=== PATIENT | female | born 1995 | race Caucasian/White ===

== ENCOUNTER → 2016-11-09 | Outpatient (CLI) | payer OTHER ==
[2016-11-09 15:41] LABS: HEMATOCRIT 40.5 % (37-47); MEAN CELL VOLUME 77.4 fL (80-100); MEAN CORPUSCULAR HEMOGLOBIN 25.6 pg (25-34); MEAN CORPUSCULAR HGB CONC 33.1 g/dl (32-36); MEAN PLATELET VOLUME 9.4 fL (7.4-10.4); PLATELET COUNT 311 K/uL (130-400); RED BLOOD COUNT 5.23 M/uL (4.2-5.4); WHITE BLOOD COUNT 9.92 K/uL (4.8-10.8)
== END | disposition home or self-care (01) ==
LOC: C.LAB1850 14:22
PROVIDERS: ATTEND Physician Assistant
DX: N92.0 Excessive and frequent menstruation with regular cycle (principal)

== ENCOUNTER 2021-03-22 17:08 | Inpatient (IN) ==
[2021-03-22] MEDS ORDERED: OXYTOCIN 30 UNITS/500 ML BAG IV PRN (20:26)
[2021-03-22 20:43] LABS: Hematocrit (blood only) 32.9 % (37-47); Hemoglobin 10.4 g/dL (12.0-16.0); Mean Corpuscular Hemoglobin 22.7 pg (25-34); Mean Corpuscular Hgb Conc 31.6 g/dL (32-36); Mean Corpuscular Volume 71.7 fL (80-100); Mean Platelet Volume 9.2 fL (7.4-10.4); Platelet Count 326 K/uL (130-400); RDW Coefficient of Variation 16.6 % (11.5-14.5); RDW Standard Deviation 43.5 fL (36.4-46.3); Red Blood Count 4.59 M/uL (4.2-5.4); White Blood Count 13.88 K/uL (4.8-10.8)
--- NOTE | 2021-03-22 20:49 | History & Physical Report ---
Date of Service March 22, 2021 Assessment & Plan (1) Gestational proteinuria: Plan: 25 yo at 39w2d GA. Early labor. 1. Fetus: Cat 1 2. Labor: Progressing. Discuss Pitocin/AROM prn 3. GBS Negative 4. Vitals normal 5. A1gDM: BG q2hr, AC 58% (2) Gestational diabetes: (3) Hypothyroid in , antepartum: History of Present Illness Primary Care Provider: NO PCP 25yo at 39w2d. Presents with ctx q3-5min. Denies LOF/VB. Good FM. complicated by: Hypothyroid *Check TFTs Q4wks(recurring order) PCOS insulin resistance-conceived on Metformin *stop metformin @ 12wks gestation *offer 1hr gtt test @ 16wks. Rh Negative - Rhogam at 28 weeks- Given 01/06/21 KA GDM w/16wk glucola *Begin monthly AC Us's @24wks Gestational Proteinuria 384 mg on 24 hour urine of 02/22/21 Labs: OB Labs: Blood Type O Negative 08/18/20 Antibody Screen NEGATIVE 01/06/21 Hemoglobin 10.0 g/dL (12.0-16.0) L 02/18/21 Hematocrit 32.3 % (37-47) L 02/18/21 Mean Corpuscular Volume 73.6 fL (80-100) L 02/18/21 Platelet Count 347 K/uL (130-400) 02/18/21 Rubella IgG Antibody Immune (Immune) 08/18/20 Rapid Plasma Reagin Nonreactive (Nonreactive) 08/18/20 Hepatitis B Surface Antigen Neg (Neg) 08/18/20 HIV (1&2) Ab and P24 Ag, 4th Gener Neg (Neg) 08/18/20 Glucose 1 Hour 50 gm Load 146 mg/dl (70-130) H 10/13/20 OB Optional Labs: Chlamydia trachomatis RNA NOT DETECTED (NOT DETECTED) 08/18/20 Neisseria gonorrhoeae RNA NOT DETECTED (NOT DETECTED) 08/18/20 Thyroid Stimulating Hormone (TSH) 3.350 uIu/ml (0.300-4.500) 12/21/17 Labs Reviewed: low risk panorama declines df/sma declined afp Allergies Allergy/AdvReac Type Severity Reaction Status Date / Time sulfamethoxazole AdvReac Rash Verified 03/22/21 17:28 [From Bactrim] trimethoprim [From Bactrim] AdvReac Rash Verified 03/22/21 17:28 Home Medications Medication Instructions Recorded Confirmed Type levothyroxine 25 mcg tablet 25 mcg PO DAILY 01/10/18 03/22/21 History prenat.vits,bill,[id number] 1 tab PO DAILY 09/15/20 03/22/21 History acetone (urine) test (Ketone Urine #50 ea 10/28/20 03/18/21 Rx Test) blood sugar diagnostic (OneTouch #150 ea 10/28/20 03/18/21 Rx Verio test strips) blood-glucose meter (OneTouch #1 ea 10/28/20 03/18/21 Rx Verio Flex meter) lancets 33 gauge (OneTouch Delica #150 ea 10/28/20 03/18/21 Rx Plus Lancet) Patient History Medical History Functional murmur History of chicken pox Hypothyroidism Surgical History [place] teeth extracted Family History Father Diabetes Hypertension Denies family history of Ovarian cancer Breast cancer Colorectal cancer Social History Smoking Status: Never smoker Hx Alcohol Use: No Hx Substance Use: No Preferred Language: Ukrainian Communication Ability: Effective Cotton Dispatcher Required: No Beliefs That Will Affect Care: None marital status: marital status details: Rick Godoy (30) [phone] Current Living Situation: Spouse Current Living Situation Comment: lives with spouse, dogs current occupational status: employed 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 Other Information That Helps Us Care for You: No Feels Safe at Home: Yes Safety Concerns: Feels Safe At This Time Seatbelt Use: always Assistive Devices: None Physical Exam Genitourinary: OB Exam Abdomen: + vertex Manual OB Exam: + cervical dilation (2-2.5), + cervical effacement 80% and + station -2 OB Exam Monitor Tracing: + external FHT monitor used, + external uterine monitor used and + category I Cervix 1/80/-2 at first check Results & Data ([facility]) Vital Signs (Past 12 Hours) Vital Signs Temp Pulse Resp BP 03/22/21 18:46 36.6 C 93 H 20 136/70 03/22/21 17:30 107 H 145/79 H 03/22/21 17:15 36.6 C 108 H 20 145/85 H Coding Level of Care Code None Diagnoses Gestational proteinuria O12.10 Gestational diabetes O24.419 Hypothyroid in , antepartum O99.280; E03.9
[2021-03-22] MEDS: LACTATED RINGER'S 1,000 ML IV PRN (21:38)
--- NOTE | 2021-03-23 00:58 | Labor Progress Brief Note ---
Date of Service March 23, 2021 Subjective Reason For Note: Routine Evaluation Assessment & Plan (1) Gestational proteinuria: Plan: 25 yo at 39w2d GA. Early labor. 1. Fetus: Cat 1 2. Labor: Progressing. s/pAROM 3. GBS Negative 4. Vitals normal 5. A1gDM: BG q2hr, AC 58% (2) Gestational diabetes: (3) Hypothyroid in , antepartum: Admission and Anticipated Discharge Date Admission Date: March 22, 2021 Physical Exam Genitourinary: OB Exam Abdomen: + vertex Manual OB Exam: + cervical dilation 3 cm, + cervical effacement, + station -1 and + amniotic fluid bloody OB Exam Monitor Tracing: + external FHT monitor used, + external uterine monitor used and + category I Results & Data ([facility]) Vital Signs (Past 12 Hours) Vital Signs Temp Pulse Resp BP 03/22/21 23:06 36.6 C 90 18 128/78 03/22/21 21:38 36.6 C 93 H 20 132/60 03/22/21 18:46 36.6 C 93 H 20 136/70 03/22/21 17:30 107 H 145/79 H 03/22/21 17:15 36.6 C 108 H 20 145/85 H Coding Level of Care Code None Diagnoses Gestational proteinuria O12.10 Gestational diabetes O24.419 Hypothyroid in , antepartum O99.280; E03.9
[2021-03-23] MEDS ORDERED: ePHEDrine sulfate 50 MG/ML AMP ONE (02:34)
[2021-03-23] MEDS ORDERED: SODIUM CHLORIDE 0.9% INJ 10 ML VIAL ONE (02:34)
[2021-03-23] MEDS ORDERED: BUPIVACAINE 0.25% 30 ML VIAL ONE (02:34)
[2021-03-23] MEDS ORDERED: fentaNYL 2MCG/ML ROPIVACAINE 1.25MG/ML 100 ML BAG EPI ONE (02:35)
[2021-03-23] MEDS ORDERED: fentaNYL citrate 100 MCG/2 ML VIAL ONE (02:35)
[2021-03-23] MEDS ORDERED: NALBUPHINE HCL INJ 10 MG/ML AMP IV PRN (03:10)
[2021-03-23] MEDS ORDERED: diphenhydrAMINE 50 MG/ML VIAL IV PRN (03:10)
[2021-03-23] MEDS ORDERED: NALOXONE HCL 0.4 MG/1 ML VIAL/CARP IV PRN (03:10)
[2021-03-23] MEDS ORDERED: NALOXONE HCL 1 MG in SODIUM CHLORIDE 0.9% 1000ML 1,000 ML IV PRN (03:10)
[2021-03-23] MEDS ORDERED: fentaNYL 2MCG/ML ROPIVACAINE 1.25MG/ML 100 ML BAG EPI PRN (03:10)
[2021-03-23] MEDS ORDERED: ONDANSETRON INJ 2 MG/ML 2 ML VIAL IV PRN (03:10)
[2021-03-23] MEDS ORDERED: ePHEDrine sulfate 50 MG/ML AMP IV PRN (03:10)
[2021-03-23] MEDS: LACTATED RINGER'S 1,000 ML IV PRN ×2 (03:12→09:33)
--- NOTE | 2021-03-23 03:16 | Anesthesiology Consultation ---
Date of Service March 23, 2021 Assessment & Plan Chart Review Chart Review: Patient NOT seen in Pre Admission Testing and Acceptable Risk for Labor Epidural Consults Requested none ASA ASA2 Proposed Anesthesia Anesthesia Type: Labor Epidural and CSE Risk / Benefits Reviewed With: PT / POA / Parent / Guardian, Accepts Plan and Informed Consent Obtained History Height/Weight Height: 5 ft 7 in Weight: 102.965 kg Allergies Allergy/AdvReac Type Severity Reaction Status Date / Time sulfamethoxazole AdvReac Rash Verified 03/22/21 17:28 [From Bactrim] trimethoprim [From Bactrim] AdvReac Rash Verified 03/22/21 17:28 Medications Home Medications Medication Instructions Recorded Confirmed Last Taken levothyroxine 25 mcg tablet 25 mcg PO DAILY 01/10/18 03/22/21 03/22/21 07:00 prenat.vits,bill,[id number]-[id number] 1 tab PO DAILY 09/15/20 03/22/21 03/22/21 08:00 acetone (urine) test (Ketone Urine #50 ea 10/28/20 03/18/21 Unknown Test) blood sugar diagnostic (OneTouch #150 ea 10/28/20 03/18/21 Unknown Verio test strips) blood-glucose meter (OneTouch #1 ea 10/28/20 03/18/21 Unknown Verio Flex meter) lancets 33 gauge (OneTouch Delica #150 ea 10/28/20 03/18/21 Unknown Plus Lancet) Active Medications Generic Name Dose Route Start Last Admin Trade Name Freq PRN Reason Stop Dose Admin Lactated Ringer's 1,000 mls @ 125 mls/hr 03/22/21 20:26 03/23/21 03:12 Lr IV 03/24/21 20:25 999 mls/hr .Q8H PRN Administration L&D Protocol Protocol NPO Date Last Intake of Fluids: 03/23/21 Time Last Intake of Fluids: 01:00 Date Last Intake of Solids: 03/22/21 Time Last Intake of Solids: 21:00 Past Medical History Medical History Functional murmur History of chicken pox Hypothyroidism Exercise / Class Metabolic Activity II 4-5 Yardwork/Stairs/Walk up hill Past Family History Family History Father Diabetes Hypertension Denies family history of Ovarian cancer Breast cancer Colorectal cancer Past Surgical History Surgical History [place] teeth extracted Past Anesthesia History No Hx of Anesthesia Complications and No Family Hx of Anesthesia Complications History of PONV No Hx of PONV and No Hx of Motion Sickness Social History Smoking Status: Never smoker Hx Alcohol Use: No Hx Substance Use: No Review of Systems no chest pain or sob Physical Exam Vital Signs Last Vital Signs Temp 36.8 C 03/23/21 02:50 Pulse 100 H 03/23/21 03:12 Resp 20 03/23/21 02:50 BP 128/78 03/22/21 23:06 Pulse Ox 99 03/23/21 03:12 ENMT Mouth: no TMJ abnormality Thyromental Distance: > or= 3.5 Finger Breadths Mallampati Class: II Neck normal visual inspection Respiratory normal respiratory effort Auscultation: lungs clear to auscultation bilaterally Cardiovascular Rate/Rhythm: regular rate and regular rhythm Musculoskeletal Spine: normal cervical ROM Neurologic moves all extremities Psychiatric Orientation: alert and oriented x 3 Testing Laboratory Results 03/22/21 20:34 Blood Type O Negative 03/22/21 20:34 Antibody Screen NEGATIVE 03/22/21 20:34 03/22/21 21:04 POC Glucose 91
--- NOTE | 2021-03-23 11:01 | Delivery Summary ---
Vaginal Delivery Summary Date of Service March 23, 2021 Vaginal Delivery Summary Patient was admitted by Dr. Zheng the evening before and progressed to fully dilated in the morning. The patient pushed over a little over an hour there was some meconium noticed and there was a late elevation of the heart rate however there were excellent accelerations and minimal decelerations she delivered in occiput anterior position mouth and then nares suctioned with bulb there was thick meconium loose nuchal cord passed over the head and then gentle traction on the baby with no excessive force this was an easy delivery live female the baby required some stimulation at the start cord was clipped quickly clamped and cut cord gases obtained baby was attended to by the nursery staff placenta was removed with gentle traction IV Pitocin was started there was a second-degree tear repaired with 3-0 Vicryl in the usual fashion at the end of the procedure sponge and instrument counts were correct estimated blood loss 300 mL
[2021-03-23] MEDS ORDERED: bisacodyL 10 MG SUPP PR PRN (11:19)
[2021-03-23] MEDS ORDERED: BENZOCAINE 20% AER SPR 82.5 GM CAN EXT PRN (11:19)
[2021-03-23] MEDS ORDERED: oxyCODONE/ACETAMINOPHEN 5mg/325mg TAB PO PRN (11:19)
[2021-03-23] MEDS ORDERED: HYDROCORTISONE ACETATE 25 MG SUPP PR PRN (11:19)
[2021-03-23] MEDS ORDERED: DIPHTHERIA/TETANUS/PERTUSSIS 0.5 ML SYR/VIAL IM ONE (11:19)
[2021-03-23] MEDS ORDERED: ACETAMINOPHEN 325 MG TAB PO PRN (11:19)
[2021-03-23] MEDS ORDERED: OXYTOCIN 30 UNITS/500 ML BAG IV PRN (11:19)
[2021-03-23 11:22] LABS: Base Excess Cord Venous Blood -5.4 mEq/L (-7.7-1.9); Cord Venous Blood HCO3 18 mmol/L (18.4-26.8); Cord Venous Blood PCO2 29 mmHg (30.4-57.2); Cord Venous Blood PO2 39 mmHg (14.1-43.3); O2 Saturation Cord Venous Bld 79.8 % (<68)
[2021-03-23 11:29] LABS: Base Excess Cord Arterial Bld -6.8 mEq/L (-9-1.8); CO2 Cord Arterial Blood 52 mmHg (39.1-73.5); HCO3 Cord Arterial Blood 21 mmol/L (19.7-28.5); PO2 Cord Arterial Blood 17 mmHg (4.1-31.7); pH Cord Arterial Blood 7.23 (7.1-7.38)
[2021-03-23 11:38] LABS: Oxygen Sat Cord Arterial Blood < 60.0 % (<60)
--- NOTE | 2021-03-23 13:11 | Anesthesiology Progress Note ---
Date of Service March 23, 2021 Anesthesia Post Procedure Vital Signs Vital Signs: Temp Pulse Resp BP Pulse Ox 03/23/21 13:05 125 H 131/62 03/23/21 12:50 112 H 140/65 03/23/21 12:35 109 H 132/64 03/23/21 12:20 126 H 137/63 03/23/21 12:05 118 H 131/57 L 03/23/21 11:50 115 H 125/55 L 03/23/21 11:35 113 H 127/58 L 03/23/21 11:20 111 H 136/63 03/23/21 11:05 118 H 134/60 03/23/21 10:57 115 H 97 03/23/21 10:52 133 H 100 03/23/21 10:50 137 H 119/60 03/23/21 10:47 147 H 99 03/23/21 10:45 37.2 C 03/23/21 10:42 149 H 98 03/23/21 10:37 144 H 100 03/23/21 10:35 130 H 117/64 03/23/21 10:32 129 H 99 03/23/21 10:27 166 H 99 03/23/21 10:22 119 H 99 03/23/21 10:21 151 H 111/53 L 03/23/21 10:17 116 H 99 03/23/21 10:12 113 H 99 03/23/21 10:07 140 H 99 03/23/21 10:06 123 H 141/61 H 03/23/21 10:02 118 H 98 03/23/21 09:57 156 H 98 03/23/21 09:52 111 H 97 03/23/21 09:50 118 H 144/66 H 03/23/21 09:47 137 H 97 03/23/21 09:42 121 H 97 03/23/21 09:37 119 H 98 03/23/21 09:35 117 H 144/74 H 03/23/21 09:32 134 H 98 03/23/21 09:27 131 H 98 03/23/21 09:22 124 H 97 03/23/21 09:20 121 H 145/74 H 03/23/21 09:17 128 H 97 03/23/21 09:12 110 H 97 03/23/21 09:07 107 H 142/76 H 97 03/23/21 09:02 107 H 98 03/23/21 08:57 110 H 97 03/23/21 08:53 36.8 C 20 03/23/21 08:52 98 H 97 03/23/21 08:51 96 H 136/77 03/23/21 08:47 104 H 98 03/23/21 08:42 112 H 98 03/23/21 08:37 105 H 97 03/23/21 08:35 98 H 117/62 03/23/21 08:32 93 H 99 03/23/21 08:27 98 H 99 03/23/21 08:22 102 H 100 03/23/21 08:20 109 H 119/68 03/23/21 08:17 102 H 100 03/23/21 08:12 102 H 100 03/23/21 08:07 95 H 99 03/23/21 08:05 94 H 116/60 03/23/21 08:02 89 100 03/23/21 07:59 20 03/23/21 07:57 91 H 100 03/23/21 07:52 87 100 03/23/21 07:50 90 134/73 03/23/21 07:47 87 100 03/23/21 07:42 89 100 03/23/21 07:37 95 H 100 03/23/21 07:35 86 131/63 03/23/21 07:32 84 100 03/23/21 07:27 100 H 100 03/23/21 07:22 93 H 100 03/23/21 07:21 86 125/62 03/23/21 07:17 86 100 03/23/21 07:12 92 H 100 03/23/21 07:07 90 139/83 100 03/23/21 07:03 36.8 C 20 03/23/21 07:02 104 H 100 03/23/21 06:57 95 H 100 03/23/21 06:52 95 H 100 03/23/21 06:50 90 118/67 03/23/21 06:47 90 100 03/23/21 06:42 92 H 100 03/23/21 06:40 36.6 C 03/23/21 06:37 95 H 99 03/23/21 06:35 104 H 134/70 03/23/21 06:32 109 H 99 03/23/21 06:27 107 H 100 03/23/21 06:22 100 H 96 03/23/21 06:20 112 H 134/66 03/23/21 06:17 94 H 96 03/23/21 06:12 95 H 96 03/23/21 06:07 100 H 96 03/23/21 06:05 101 H 134/68 03/23/21 06:02 101 H 97 03/23/21 05:57 109 H 97 03/23/21 05:52 102 H 96 03/23/21 05:50 103 H 132/60 03/23/21 05:47 91 H 96 03/23/21 05:42 91 H 96 03/23/21 05:37 94 H 97 03/23/21 05:36 90 131/60 03/23/21 05:32 102 H 98 03/23/21 05:27 90 97 03/23/21 05:22 115 H 98 03/23/21 05:20 87 118/56 L 03/23/21 05:17 94 H 97 03/23/21 05:12 90 97 03/23/21 05:07 95 H 98 03/23/21 05:05 96 H 122/58 L 03/23/21 05:02 104 H 97 03/23/21 05:00 36.9 C 18 03/23/21 04:57 104 H 96 03/23/21 04:52 104 H 97 03/23/21 04:50 110 H 123/61 03/23/21 04:47 100 H 96 03/23/21 04:42 94 H 97 03/23/21 04:37 98 H 96 03/23/21 04:35 93 H 124/67 03/23/21 04:32 100 H 98 03/23/21 04:27 96 H 98 03/23/21 04:22 97 H 98 03/23/21 04:20 99 H 126/67 03/23/21 04:17 95 H 96 03/23/21 04:12 97 H 98 03/23/21 04:07 100 H 98 03/23/21 04:06 93 H 138/75 03/23/21 04:02 98 H 98 03/23/21 03:57 88 98 03/23/21 03:52 92 H 99 03/23/21 03:47 102 H 122/68 98 03/23/21 03:44 90 128/71 03/23/21 03:42 95 H 99 03/23/21 03:41 93 H 129/66 03/23/21 03:38 102 H 125/73 03/23/21 03:37 92 H 99 03/23/21 03:35 98 H 139/71 03/23/21 03:32 102 H 135/75 99 03/23/21 03:29 105 H 138/72 03/23/21 03:27 96 H 99 03/23/21 03:26 96 H 135/77 03/23/21 03:23 100 H 138/96 03/23/21 03:22 108 H 100 03/23/21 03:17 127 H 140/82 100 03/23/21 03:12 100 H 99 03/23/21 02:50 36.8 C 20 03/23/21 01:00 36.6 C 20 03/22/21 23:06 36.6 C 90 18 128/78 03/22/21 21:38 36.6 C 93 H 20 132/60 03/22/21 18:46 36.6 C 93 H 20 136/70 03/22/21 17:30 107 H 145/79 H 03/22/21 17:15 36.6 C 108 H 20 145/85 H Transfer of Care Handoff Completed per policy Notes Mental Status: alert / awake / arousable and participated in evaluation Patient Amnestic to Procedure: Yes Nausea / Vomiting: adequately controlled Pain: adequately controlled Airway Patency, RR, SpO2: stable & adequate BP & HR: stable & adequate Hydration State: stable & adequate Anesthetic Complications: no major complications apparent and Pt Satisfied with anesthetic care
[2021-03-23] MEDS: IBUPROFEN 600 MG TAB PO PRN ×2 (18:24→21:17)
[2021-03-23] MEDS: DOCUSATE SODIUM 100 MG CAP PO SCH (21:17)
[2021-03-24] MEDS: IBUPROFEN 600 MG TAB PO PRN ×2 (04:13→08:26)
--- NOTE | 2021-03-24 06:12 | Obstetrical Progress Note ---
Date of Service <Nemo Ortiz DO - Last Filed: 03/24/21 06:50> March 24, 2021 Assessment & Plan <Nemo Ortiz DO - Last Filed: 03/24/21 06:50> (1) Gestational proteinuria: (2) Gestational diabetes: (3) Hypothyroid in , antepartum: (4) Encounter for care and examination after delivery: 25 yo post op day1 from with GDM, gestational proteinuria, and hypothyroidism affecting , doing well. -Continue routine post care. -vital signs reviewed and WNL (Tmax 37.6) -Blood Type O- recieved rhogam 01/06/21, GBS-, Rubella immune -Encourage ambulation, monitor and control pain with Motrin, tylenol PRN, resume regular diet, monitor lochia -encourage breast/bottle feeding once infant reunited with mother -hemoglobin 10.4 Day #:: 1 <Blas Grimes MD, FACOG - Last Filed: 03/24/21 07:24> (1) Gestational proteinuria: (2) Gestational diabetes: (3) Hypothyroid in , antepartum: (4) Encounter for care and examination after delivery: Subjective <Nemo Ortiz DO - Last Filed: 03/24/21 06:50> Ambulation: ambulating normally Voiding: no voiding problems Passing Gas:: Yes Diet Tolerance:: regular diet Lochia:: Large Feeding Type:: bottle feeding (with pediatricians, mother has not attempted breast feeding yet) Current Pain Level(1-10): 1 Review of Systems Denies fever, chills, sweats Denies shortness of breath, difficulty breathing, chest pain, palpitations, chest pressure. Denies breast pain. Denies dysuria. Denies headache or changes in vision. Physical Exam <Nemo Ortiz DO - Last Filed: 03/24/21 06:50> General: Alert, oriented. No acute distress. Cardiac: Regular rate and rhythm, no murmurs/rubs/gallops. Respiratory: Clear to auscultation bilaterally a/p, no wheezes/rales/rhonchi. No increased work of breathing. Symmetrical chest rise. No respiratory distress. Abdomen: Soft, nontender, nondistended. Bowel sounds present. Uterus: Uterine fundus firm, palpable 2 cm below umbilicus. Lower Extremities: No lower extremity edema or swelling. No deep calf pain. Violeta's negative bilaterally.. Results & Data ([facility]) <Nemo Ortiz DO - Last Filed: 03/24/21 06:50> Vital Signs (Past 12 Hours) Vital Signs Temp Pulse Resp BP Pulse Ox 03/24/21 04:05 36.5 C 87 18 126/77 100 03/23/21 23:30 36.6 C 91 H 18 130/79 99 03/23/21 19:45 37.2 C 97 H 18 136/76 98 <Blas Grimes MD, FACOG - Last Filed: 03/24/21 07:24> Co-Signing Physician Notes Resident Physician Supervision Note: I was present with Dr. Ortiz during the history and exam. I discussed the case with the resident and agree with the findings and plan as documented in the n ote. Any exceptions or clarifications are listed here: [None] Documented By: Blas Grimes MD, FACOG Resident Activity Tracking <Nemo Ortiz DO - Last Filed: 03/24/21 06:50> Resident Involvement: Resident Care Provided Care Provided: Adult [facility]
[2021-03-24] MEDS ORDERED: LEVOTHYROXINE SODIUM 25 MCG TABLET PO SCH (06:30)
[2021-03-24] MEDS ORDERED: PRENATAL VITAMIN 1 TAB PO SCH (08:00)
[2021-03-24] MEDS: DOCUSATE SODIUM 100 MG CAP PO SCH (08:26)
[2021-03-24] MEDS ORDERED: bisacodyL 5 MG TABEC PO SCH (20:00)
== END 2021-03-24 10:50 | disposition home or self-care (01) | DRG 807 ==
LOC: OPB 17:08 → 4S1 17:11 → 4S2 03-23 14:19

== ENCOUNTER 2021-04-25 18:08 | Observation (INO) ==
[2021-04-25] MEDS ORDERED: ONDANSETRON INJ 2 MG/ML 2 ML VIAL IV STA (18:37)
[2021-04-25] MEDS ORDERED: SODIUM CHLORIDE 0.9% 1000ML 1,000 ML IV STA (18:37)
[2021-04-25 18:57] LABS: Basophils # (auto) 0.01 K/uL (0-0.2); Basophils % (auto) 0.1 %; Eosinophils # (auto) 0.25 K/uL (0-0.5); Eosinophils % (auto) 2.4 %; Hematocrit (blood only) 35.4 % (37-47); Hemoglobin 11.2 g/dL (12.0-16.0); Immature Granulocytes # (auto) 0.02 K/uL (0.00-0.02); Immature Granulocytes % (auto) 0.2 %; Lymphocytes # (auto) 2.85 K/uL (1.2-3.4); Lymphocytes % (auto) 26.9 %; Mean Corpuscular Hemoglobin 22.8 pg (25-34); Mean Corpuscular Hgb Conc 31.6 g/dL (32-36); Mean Corpuscular Volume 72.1 fL (80-100); Mean Platelet Volume 8.8 fL (7.4-10.4); Monocytes # (auto) 0.56 K/uL (0.11-0.59); Monocytes % (auto) 5.3 %; Neutrophils # (auto) 6.89 K/uL (1.4-6.5); Neutrophils % (auto) 65.1 %; Platelet Count 336 K/uL (130-400); RDW Coefficient of Variation 15.9 % (11.5-14.5); RDW Standard Deviation 42.1 fL (36.4-46.3); Red Blood Count 4.91 M/uL (4.2-5.4); White Blood Count 10.58 K/uL (4.8-10.8)
--- NOTE | 2021-04-25 18:57 | Emergency Department Note ---
Impression & Plan Gallstones, Right upper quadrant abdominal pain, UTI (urinary tract infection) ED Provider Note NAME: ZEINA GODOY AGE: 25 SEX: F : 1995 ARRIVES VIA: Walk-In INFORMANT: Patient, ED PROVIDER(S): Jamari Wolf DO CHIEF COMPLAINT: Abdominal pain HPI: The patient is a 25-year-old female who presented to the emergency [facility] for evaluation of abdominal pain. Patient states that she has had multiple visits to our facility recently for similar complaints. She states that she was diagnosed with gallstones. She saw her primary surgeon this past . She is scheduled for surgery in May. She started having worsening pain especially over the last 48 hours. She notices upper abdominal pain with nausea. She also notices back pain. She states the pain is moderate to severe. She states that she has worsening pain with food. She called the on-call surgeon today and was referred to the emergency department for admission and possible surgery over the next 24 to 48 hours. She denies having any fever. She has had no recent trauma. ROS: See above HPI for pertinent positives & negatives. A total of 10 systems reviewed and were otherwise negative. PAST MEDICAL HISTORY: See Below PAST SURGICAL HISTORY: See Below FAMILY HISTORY: See Below SOCIAL HISTORY: See Below HOME MEDICATIONS: See Below ALLERGIES: See Below VITALS: See Below PHYSICAL EXAMINATION: GENERAL: Patient is awake alert in no acute distress patient is resting comfortably and showing no signs of anxiety EYES: The conjunctivae are clear. The pupils are round and reactive. EARS, NOSE, MOUTH AND THROAT: The nose is without any evidence of any deformity. Mucous membranes are moist. Tongue is midline. NECK: The neck is nontender and supple. RESPIRATORY: Normal respiratory effort is noted there is no evidence of wheezing rhonchi or rales CARDIOVASCULAR: Regular rate and rhythm noted there no murmurs rubs or gallops normal S1 normal S2. GASTROINTESTINAL: The abdomen is soft and mildly distended. There is epigastric and right upper quadrant tenderness to palpation. There is no guarding rigid ity. MUSCULOSKELETAL/EXTREMITIES: There is no evidence of gross deformity full range of motion is noted in the hips and shoulders. SKIN: There is no obvious evidence of any rash. There are no petechiae, pallor or cyanosis noted. NEUROLOGIC: Patient is awake alert and oriented x 3. Gait was steady. MEDICAL DECISION MAKING: The patient is a 25-year-old female who presented to the emergency department for an evaluation of right upper quadrant abdominal pain. The patient is a history of similar episodes in the past. She has been seen in our facility before. She did follow-up with surgery and is scheduled for surgical intervention but her pain became worse this evening. She did call the on-call general surgeon and was instructed to come to the emergency department for possible admission to their service. I discussed patient's laboratory results with the on-call general surgical group. They have evaluated the patient in the emergency department and felt that she would be a good candidate for inpatient management followed by surgical intervention if needed. The patient was treated with IV fluids and IV pain medication. She was also given IV antibiotics for presumed urinary tract infection noted on urinalysis. Triage Nursing notes reviewed. Prior medical records reviewed Vital Signs: reviewed and remarkable for no significant abnormalities Differential diagnosis: Appendicitis, ovarian cyst, ovarian torsion, ectopic , TOA, PID, infections, diverticulitis, UTI, obstruction, mesenteric ischemia, aortic pathology, inflammatory bowel disease, renal colic, PUD, pancreatitis, biliary pathology, hernia, volvulus, constipation, as well as other pathologies. ER treatment provided: See below Diagnostics interpreted by me: ECG: none Cardiac Monitoring: An order was placed for continuous cardiac monitoring. The monitor shows a rate of 65 bpm with sinus rhythm. Laboratory studies: As stated above and show below. Imaging studies: See below Consultation(s): I discussed this case with Boby Issa on-call for general surgery. Past Med/Surg History Medical History Functional murmur History of chicken pox Hypothyroidism Surgical History [place] teeth extracted Family History Father Diabetes Hypertension Denies family history of Ovarian cancer Breast cancer Colorectal cancer Social History Smoking Status: Never smoker Hx Alcohol Use: No Hx Substance Use: No Preferred Language: Swazi Communication Ability: Effective Emergency Department Required: No Beliefs That Will Affect Care: None marital status: marital status details: Rick Godoy (30) [phone] Current Living Situation: Spouse Current Living Situation Comment: lives with spouse, dogs current occupational status: employed 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 [employer] How many Children do You have: 1 How many Children do You have Comment: Maribell born 03[birth year]21 Feels Safe at Home: Yes Safety Concerns: Feels Safe At This Time during the past year weight has: remained stable Seatbelt Use: always Assistive Devices: Glasses Allergies Allergies Allergy/AdvReac Type Severity Reaction Status Date / Time sulfamethoxazole AdvReac Intermediate Rash Verified 04/25/21 19:05 [From Bactrim] trimethoprim [From Bactrim] AdvReac Intermediate Rash Verified 04/25/21 19:05 Home Meds Home Medications Medication Instructions Recorded Confirmed levothyroxine 25 mcg tablet 25 mcg PO DAILY 01/10/18 04/25/21 Results & Data (ED) Vital Signs Vital Signs - 24 hr 04/25/21 18:08 Temperature 36.3 C L Temperature Source Temporal Artery Scan Pulse Rate 87 Respiratory Rate 16 Respiratory Effort / Characteristics Non-Labored Respiratory Depth Normal Blood Pressure 134/82 Blood Pressure Mean 99 Pulse Oximetry 99 Sepsis Recent Fever Within 48 Hours No Sepsis New/Unexplained Change in Mental Status N/A Sepsis Action Taken by Nursing No Action Required Home Medications Current Medication List: was personally reviewed by me Laboratory Data Attestation: I reviewed the patient's lab results. Result diagrams: 04/25/21 18:42 04/25/21 18:42 Lab Results 04/25/21 04/25/21 04/25/21 Range/Units 18:42 18:42 18:42 WBC 10.58 (4.8-10.8) K/uL RBC 4.91 (4.2-5.4) M/uL Hgb 11.2 L (12.0-16.0) g/dL Hct 35.4 L (37-47) % MCV 72.1 L (80-100) fL MCH 22.8 L (25-34) pg MCHC 31.6 L (32-36) g/dL RDW Std Deviation 42.1 (36.4-46.3) fL RDW Coeff of Barbara 15.9 H (11.5-14.5) % Plt Count 336 (130-400) K/uL MPV 8.8 (7.4-10.4) fL Immature Gran % (Auto) 0.2 % Neut % (Auto) 65.1 % Lymph % (Auto) 26.9 % [place] % (Auto) 5.3 % Eos % (Auto) 2.4 % Baso % (Auto) 0.1 % Neut # (Auto) 6.89 H (1.4-6.5) K/uL Lymph # (Auto) 2.85 (1.2-3.4) K/uL [place] # (Auto) 0.56 (0.11-0.59) K/uL Eos # (Auto) 0.25 (0-0.5) K/uL Baso # (Auto) 0.01 (0-0.2) K/uL Immature Gran # (Auto) 0.02 (0.00-0.02) K/uL Sodium 139 (136-145) mmol/L Potassium 3.9 (3.5-5.1) mmol/L Chloride 103 (98-107) mmol/L Carbon Dioxide 27 (21-32) mmol/L Anion Gap 9 (3-11) BUN 8 (6-23) mg/dl Creatinine 0.71 (0.6-1.2) mg/dl Est Cr Clr Drug Dosing 141.8 ml/min Est GFR ( Amer) 135.3 ml/min Est GFR (Non-Af Amer) 116.7 ml/min BUN/Creatinine Ratio 11.3 (10-20) Glucose 97 (70-99(Fasting)) mg/dl Calcium 9.3 (8.5-10.1) mg/dl Total Bilirubin 0.3 (0.2-1.0) mg/dl AST 57 H (13-39) U/L ALT 27 (7-52) U/L Alkaline Phosphatase 104 (34-104) U/L Total Protein 7.6 (6.0-8.3) gm/dl Albumin 4.3 (3.4-5.0) gm/dl Globulin 3.3 (2.5-4.0) gm/dl Albumin/Globulin Ratio 1.3 (0.9-2) Lipase 30 (11-82) U/L HCG, Qual Negative (Negative) Urine Color Urine Appearance (Clear) Urine pH (4.5-7.5) Ur Specific [place] (1.000-1.030) Urine Protein (Negative) Urine Glucose (UA) (Negative) Urine Ketones (Negative) Urine Blood (Negative) Urine Nitrite (Negative) Urine Bilirubin (Negative) Urine Urobilinogen (Negative) Ur Leukocyte Esterase (Negative) Urine WBC (Auto) (0-5) /hpf Urine RBC (Auto) (0-4) /hpf U Hyaline Cast (Auto) (0-5) /lpf U Epithel Cells (Auto) (0-5) /lpf Urine Bacteria (Auto) (Negative) SARS-CoV-2, RNA, NAAT (NEGATIVE) 04/25/21 04/25/21 Range/Units 19:00 19:29 WBC (4.8-10.8) K/uL RBC (4.2-5.4) M/uL Hgb (12.0-16.0) g/dL Hct (37-47) % MCV (80-100) fL MCH (25-34) pg MCHC (32-36) g/dL RDW Std Deviation (36.4-46.3) fL RDW Coeff of Barbara (11.5-14.5) % Plt Count (130-400) K/uL MPV (7.4-10.4) fL Immature Gran % (Auto) % Neut % (Auto) % Lymph % (Auto) % [place] % (Auto) % Eos % (Auto) % Baso % (Auto) % Neut # (Auto) (1.4-6.5) K/uL Lymph # (Auto) (1.2-3.4) K/uL [place] # (Auto) (0.11-0.59) K/uL Eos # (Auto) (0-0.5) K/uL Baso # (Auto) (0-0.2) K/uL Immature Gran # (Auto) (0.00-0.02) K/uL Sodium (136-145) mmol/L Potassium (3.5-5.1) mmol/L Chloride (98-107) mmol/L Carbon Dioxide (21-32) mmol/L Anion Gap (3-11) BUN (6-23) mg/dl Creatinine (0.6-1.2) mg/dl Est Cr Clr Drug Dosing ml/min Est GFR ( Amer) ml/min Est GFR (Non-Af Amer) ml/min BUN/Creatinine Ratio (10-20) Glucose (70-99(Fasting)) mg/dl Calcium (8.5-10.1) mg/dl Total Bilirubin (0.2-1.0) mg/dl AST (13-39) U/L ALT (7-52) U/L Alkaline Phosphatase (34-104) U/L Total Protein (6.0-8.3) gm/dl Albumin (3.4-5.0) gm/dl Globulin (2.5-4.0) gm/dl Albumin/Globulin Ratio (0.9-2) Lipase (11-82) U/L HCG, Qual (Negative) Urine Color Yellow Urine Appearance Cloudy A (Clear) Urine pH 7.0 (4.5-7.5) Ur Specific [place] 1.016 (1.000-1.030) Urine Protein Trace H (Negative) Urine Glucose (UA) Negative (Negative) Urine Ketones Negative (Negative) Urine Blood 1+ H (Negative) Urine Nitrite Negative (Negative) Urine Bilirubin Negative (Negative) Urine Urobilinogen Negative (Negative) Ur Leukocyte Esterase 2+ H (Negative) Urine WBC (Auto) >30 H (0-5) /hpf Urine RBC (Auto) 10-30 H (0-4) /hpf U Hyaline Cast (Auto) 1-5 (0-5) /lpf U Epithel Cells (Auto) >30 H (0-5) /lpf Urine Bacteria (Auto) 1+ H (Negative) SARS-CoV-2, RNA, NAAT NEGATIVE (NEGATIVE) Administered Medications Fentanyl Citrate (Fentanyl Citrate 100 Mcg/2 Ml Vial) 50 mcg IV Q15M PRN PRN Reason: Pain Stop: 05/09/21 18:36 Last Admin: 04/25/21 20:16 Dose: 50 mcg Documented by: [id number] Admin: 04/25/21 19:16 Dose: 50 mcg Documented by: [id number] Lactated Ringer's (Lr) 1,000 mls @ 75 mls/hr IV .[id number] OMER Stop: 05/25/21 21:28 Last Admin: 04/25/21 21:51 Dose: 75 mls/hr Documented by: [id number] Morphine Sulfate (Morphine Sulfate 4 Mg/Ml 1 Ml Carp\Vial) 3 mg IV Q3H PRN PRN Reason: Pain Stop: 05/09/21 21:28 Last Admin: 04/25/21 22:50 Dose: 3 mg Documented by: [id number] Discontinued Medications Sodium Chloride (Nss 1000ml) 1,000 mls @ 999 mls/hr IV .[id number] STA Stop: 04/25/21 19:37 Last Infusion: 04/25/21 21:08 Dose: 0 mls/hr Documented by: [id number] Admin: 04/25/21 19:17 Dose: 999 mls/hr Documented by: [id number] Piperacillin Sod/Tazobactam Sod (Zosyn) 4.5 gm in 120 mls @ 240 mls/hr IV NOW ONE Stop: 04/25/21 20:07 Last Infusion: 04/25/21 21:08 Dose: 0 mls/hr Documented by: [id number] Admin: 04/25/21 20:16 Dose: 240 mls/hr Documented by: [id number] Ondansetron HCl (Ondansetron Inj 2 Mg/Ml 2 Ml Vial) 4 mg IV NOW STA Stop: 04/25/21 18:38 Last Admin: 04/25/21 19:16 Dose: 4 mg Documented by: [id number] Discharge Plan Visit Data Chief Complaint: Referred by Doctor Stated Complaint: dr kapoor refer'd, pt has gallstones, needs admitted ED Provider: Jamari Wolf Discharge Problem: Gallstones, Right upper quadrant abdominal pain, UTI (urinary tract infection) Patient Disposition: Admitted As Inpatient Discharge Instructions Interventions: ED Discharge Assessment Last Done: 04/25/21 21:18
[2021-04-25 19:15] LABS: Albumin Globulin Ratio 1.3 (0.9-2); Albumin Level 4.3 gm/dl (3.4-5.0); BUN Creatinine Ratio 11.3 (10-20); Bilirubin,Total 0.3 mg/dl (0.2-1.0); Calcium 9.3 mg/dl (8.5-10.1); Creatinine Clr Calc Pharmacy 141.8 ml/min; Est GFR (African American) 135.3 ml/min; Est GFR (Non-African American) 116.7 ml/min; Globulin 3.3 gm/dl (2.5-4.0); Potassium 3.9 mmol/L (3.5-5.1); Total Protein 7.6 gm/dl (6.0-8.3)
[2021-04-25] MEDS: fentaNYL citrate 100 MCG/2 ML VIAL IV PRN ×2 (19:16→20:16)
[2021-04-25 19:20] LABS: Appearance Urine Cloudy (Clear); Bacteria Urine Automated 1+ (Negative); Bilirubin Urine Negative (Negative); Blood Urine 1+ (Negative); Color Urine Yellow; Epithelial Cell Urine Auto >30 /lpf (0-5); Glucose Urine UA Negative (Negative); Ketones Urine Negative (Negative); Leukocyte Esterase Urine 2+ (Negative); Nitrite Urine Negative (Negative); Protein Urine Trace (Negative); Specific Gravity Urine 1.016 (1.000-1.030); Urobilinogen Urine Negative (Negative); WBC Urine Automated >30 /hpf (0-5)
[2021-04-25 19:28] LABS: Pregnancy Test, Serum Negative (Negative)
[2021-04-25] MEDS ORDERED: PIPERACILLIN/TAZOBACTAM 4.5 GM/120 ML BAG IV ONE (19:38)
[2021-04-25] MEDS ORDERED: PIPERACILL/TAZOBAC CONSULT ACTIVE PRN ×2 (19:38→21:29)
--- NOTE | 2021-04-25 20:51 | History & Physical Report ---
Date of Service April 25, 2021 Assessment & Plan (1) Biliary colic: Plan: Patient will be admitted to the hospital we will proceed as follows: We will keep the patient n.p.o. except for medicines We will hydrate with IV fluids We will provide analgesics We will provide antiemetics We will administer antibiotics. She is received Zosyn in the emergency department which we will continue We will repeat labs in the morning Due to the patient's known history of gallstones, physical exam, and clinical presentation we will tentatively plan on laparoscopic, possible open cholecystectomy tomorrow by either Dr. Swanson or Dr. Alvarez. I discussed the risks, benefits, and expected postoperative course with the patient Additional recommendation made based on her operative findings and her postoperative course. SCDs to be used for DVT prevention, no chemical means due to planned surgery Should be a level 1 full code History of Present Illness Chief Complaint: Abdominal pain Primary Care Provider: NO PCP This is a 25-year-old female who underwent an ultrasound of her gallbladder on April 10 of this year. This ultrasound showed the patient had cholelithiasis with no gallbladder wall thickening. Patient was referred to Dr. Neal Swanson of [facility] physician with general surgery and plans were tentatively in place for patient had an elective cholecystectomy on May 24 of this year. Patient notified the answering service this evening that she is having worsening abdominal pain. The patient notes for approximately 3 to 5 days she has been having abdominal pain greatest in the epigastric area and to a lesser degree the right upper quadrant that comes and goes which is unrelated to meals. She has had nausea without vomiting. She says that she has been able to eat and this did not seem to exacerbate her pain. She does note that the pain is similar to what she experienced which prompted her initial gallbladder but it is worse in severity and is longer in duration. She notes that the pain also radiates to her back. She does not note any additional provocative factors but she knows it is palliated with medicines were administered in the emergency department. She also adds it is worse in the evening. She has not had any fevers. She does report occasional bouts of diarrhea. She has never had abdominal surgery before. As noted she presented to the emergency department at the recommendation of the on-call physician. In the emergency department patient was hemodynamically stable and afebrile. She did not have any repeat imaging but labs showed that her white blood cell count was normal. Hemoglobin and hematocrit 11.2 and 35.4. Platelet count was noted to be normal. Chemistry profile showed sodium, potassium, BUN, and creatinine were all normal. Her bilirubin, ALT, and alkaline phosphatase were normal. There is a slight elevation of her AST at 57. Her lipase was normal. A test was noted to be negative. Urinalysis did show 2+ leukocyte Estrace and greater than 30 white blood cells per high- power field suggestive of a urinary tract infection. A Covid test was noted be negative. At the time of my interview she was resting comfortably in bed in no distress. Allergies Allergy/AdvReac Type Severity Reaction Status Date / Time sulfamethoxazole AdvReac Intermediate Rash Verified 04/25/21 19:05 [From Bactrim] trimethoprim [From Bactrim] AdvReac Intermediate Rash Verified 04/25/21 19:05 Home Medications Medication Instructions Recorded Confirmed Type levothyroxine 25 mcg tablet 25 mcg PO DAILY 01/10/18 04/25/21 History Past Med/Surg History Medical History Functional murmur History of chicken pox Hypothyroidism Surgical History [place] teeth extracted Family History Father Diabetes Hypertension Denies family history of Ovarian cancer Breast cancer Colorectal cancer Social History Smoking Status: Never smoker Hx Alcohol Use: No Hx Substance Use: No Preferred Language: Nigerian Communication Ability: Effective 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 Beliefs That Will Affect Care: None marital status: marital status details: Rick Godoy (30) [phone] Current Living Situation: Spouse Current Living Situation Comment: lives with spouse, dogs current occupational status: employed 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 How many Children do You have: 1 How many Children do You have Comment: Maribell born 03[birth year]21 Feels Safe at Home: Yes Safety Concerns: Feels Safe At This Time during the past year weight has: remained stable Seatbelt Use: always Assistive Devices: Glasses Review of Systems Constitutional: no fever and no chills Eyes: no diplopia Ear, Nose, Mouth, Throat: no ear pain Respiratory: no cough and no dyspnea Cardiovascular: no chest pain Gastrointestinal: + abdominal pain and + nausea; no vomiting Genitourinary: no dysuria Musculoskeletal: + back pain (Radiating from her abdomen) Integumentary: no rash Neurologic: no localized weakness Physical Exam Constitutional: WD/WN, vitals as above Eyes: no conjunctival abnormality ENMT: Ears: no hearing impairment and no external ear abnormality Mouth: no oropharynx abnormality Neck: trachea midline Respiratory: normal respiratory effort; no respiratory distress and no labored breathing Cardiovascular: Rate/Rhythm: regular rate and regular rhythm Gastrointestinal (Abdomen): Abdomen is soft and nondistended. There is no rebound tenderness or guarding. Patient did have some pain with palpation in the epigastric area in the right upper quadrant. She had marked pain with deep inspiration and palpation in the right upper quadrant indicative of a positive Lord sign. Musculoskeletal: No calf tenderness Skin: no rashes Neurologic: moves all extremities Psychiatric: A+Ox3, euthymic affect Results & Data Results & Data ([facility]) Vital Signs (Past 12 Hours) Vital Signs Temp Pulse Resp BP Pulse Ox 04/25/21 18:08 36.3 C L 87 16 134/82 99 Code Status & VTE Plan VTE Prophylaxis Plan VTE Prophylaxis will be ordered: Yes Supervising Physician Co-Signing Physician Notes As per Boby Issa physician product safety technical assistant I had received a call from the patient's mother yesterday concerned that her daughter would not be able to wait until May 24 to have her gallbladder out since she was quite symptomatic over the weekend therefore I asked her to come into the emergency room and be evaluated and she was admitted we will plan to proceed with laparoscopic cholecystectomy today She was scheduled to have surgery on elective May [address] Swanson who had seen her in the office and either myself or Dr. Swanson will proceed with surgery today Risk and complication of the surgery were explained to patient including bleeding infection converting to an open procedure and she would like to proceed accordingly At this time her abdomen is benign she has no guarding or tenderness in the right upper quadrant We will signed the permit in the preop area the patient is on the add-on schedule today PG Care Time/CCT Total # of Minutes Spent Total Time Spent with Patient: Total time spent is greater than 50% in coordination of care (as documented) at patient's floor/unit and/or counseling patient: Coding Level of Care Code INT OBSERVATION CARE 70M LVL 3 Diagnoses Biliary colic K80.50
[2021-04-25] MEDS ORDERED: MoRPHine SULFATE 4 MG/ML 1 ML CARP\\VIAL IV PRN (21:29)
[2021-04-25] MEDS ORDERED: ONDANSETRON INJ 2 MG/ML 2 ML VIAL IV PRN (21:29)
[2021-04-25] MEDS ORDERED: ACETAMINOPHEN 1,000 MG/100 ML VIAL IV PRN (21:29)
[2021-04-25] MEDS: LACTATED RINGER'S 1,000 ML IV SCH (21:51)
[2021-04-26] MEDS: PIPERACILLIN/TAZOBACTAM 3.375 GM in DEXTROSE 5% 100 ML IV SCH ×2 (03:59→13:27)
[2021-04-26] MEDS ORDERED: LEVOTHYROXINE SODIUM 25 MCG TABLET PO SCH (06:30)
[2021-04-26 07:21] LABS: Basophils # (auto) 0.02 K/uL (0-0.2); Basophils % (auto) 0.3 %; Eosinophils # (auto) 0.25 K/uL (0-0.5); Eosinophils % (auto) 3.6 %; Hematocrit (blood only) 32.9 % (37-47); Hemoglobin 10.1 g/dL (12.0-16.0); Immature Granulocytes # (auto) 0.01 K/uL (0.00-0.02); Immature Granulocytes % (auto) 0.1 %; Lymphocytes # (auto) 2.94 K/uL (1.2-3.4); Lymphocytes % (auto) 42.4 %; Mean Corpuscular Hemoglobin 22.1 pg (25-34); Mean Corpuscular Hgb Conc 30.7 g/dL (32-36); Mean Corpuscular Volume 71.8 fL (80-100); Monocytes # (auto) 0.55 K/uL (0.11-0.59); Monocytes % (auto) 7.9 %; Neutrophils # (auto) 3.17 K/uL (1.4-6.5); Neutrophils % (auto) 45.7 %; Platelet Count 298 K/uL (130-400); RDW Coefficient of Variation 16.1 % (11.5-14.5); RDW Standard Deviation 42.4 fL (36.4-46.3); Red Blood Count 4.58 M/uL (4.2-5.4); White Blood Count 6.94 K/uL (4.8-10.8)
[2021-04-26 07:40] LABS: Albumin Globulin Ratio 1.5 (0.9-2); Albumin Level 3.6 gm/dl (3.4-5.0); BUN Creatinine Ratio 10.3 (10-20); Bilirubin,Total 0.9 mg/dl (0.2-1.0); Creatinine Clr Calc Pharmacy 148.1 ml/min; Est GFR (African American) 138.9 ml/min; Est GFR (Non-African American) 119.9 ml/min; Globulin 2.4 gm/dl (2.5-4.0); Potassium 4.1 mmol/L (3.5-5.1)
[2021-04-26 07:42] LABS: Tear Drop Cells 1+
--- NOTE | 2021-04-26 10:20 | Anesthesiology Consultation ---
Date of Service April 26, 2021 Assessment & Plan (1) Encounter for pre-operative examination: Chart Review Chart Review: Acceptable Risk for Surgery and Patient NOT seen in Pre Admission Testing Consults Requested none History Surgery Operation Date: 04/26/21 07:00 Proposed Procedures p Laparoscopic Cholecystectomy Possible Open Possible Cholangiogram - Neal Swanson MD, FACS Height/Weight Height: 5 ft 7 in Weight: 96.3 kg Allergies Allergy/AdvReac Type Severity Reaction Status Date / Time sulfamethoxazole AdvReac Intermediate Rash Verified 04/25/21 19:05 [From Bactrim] trimethoprim [From Bactrim] AdvReac Intermediate Rash Verified 04/25/21 19:05 Medications Home Medications Medication Instructions Recorded Confirmed Last Taken levothyroxine 25 mcg tablet 25 mcg PO DAILY 01/10/18 04/25/21 04/25/21 Active Medications Generic Name Dose Route Start Last Admin Trade Name Freq PRN Reason Stop Dose Admin Fentanyl Citrate 50 mcg 04/25/21 18:37 04/25/21 20:16 Fentanyl Citrate 100 Mcg/2 Ml Vial IV 05/09/21 18:36 50 mcg Q15M PRN Administration Pain Lactated Ringer's 1,000 mls @ 75 mls/hr 04/25/21 21:29 04/26/21 10:13 Lr IV 05/25/21 21:28 0 mls/hr .[id number] OMER Infusion Piperacillin Sod/Tazobactam 115 mls @ 28.75 mls/hr 04/26/21 04:00 04/26/21 0 7:59 Sod 3.375 gm/ Dextrose IV 05/06/21 03:59 Infused Q8H OMER Infusion Protocol Levothyroxine Sodium 25 mcg 04/26/21 06:30 04/26/21 05:30 Levothyroxine Sodium 25 Mcg Tablet PO 05/26/21 06:29 Not Given DAILYBB OMER Morphine Sulfate 3 mg 04/25/21 21:29 04/25/21 22:50 Morphine Sulfate 4 Mg/Ml 1 Ml Carp\Vial IV 05/09/21 21:28 3 mg Q3H PRN Administration Pain NPO Date Last Intake of Fluids: 04/25/21 Time Last Intake of Fluids: 12:00 Last Intake of Fluids Comment: per patient report Date Last Intake of Solids: 04/25/21 Time Last Intake of Solids: 12:00 Last Intake of Solids Comment: per patient report Past Medical History Medical History Functional murmur History of chicken pox Hypothyroidism Past Family History Family History Father Diabetes Hypertension Denies family history of Ovarian cancer Breast cancer Colorectal cancer Past Surgical History Surgical History [place] teeth extracted Social History Smoking Status: Never smoker Hx Alcohol Use: No Hx Substance Use: No substance use type: does not use Physical Exam Vital Signs Last Vital Signs Temp 97.7 F 04/26/21 07:50 Pulse 53 L 04/26/21 07:50 Resp 18 04/26/21 07:50 BP 118/76 04/26/21 07:50 Pulse Ox 97 04/26/21 07:50 Testing Laboratory Results 04/26/21 06:51 04/26/21 06:51 Urine Color Yellow 04/25/21 19:00 Urine Appearance Cloudy (Clear) A 04/25/21 19:00 Urine pH 7.0 (4.5-7.5) 04/25/21 19:00 Ur Specific [place] 1.016 (1.000-1.030) 04/25/21 19:00 Urine Protein Trace (Negative) H 04/25/21 19:00 Urine Glucose (UA) Negative (Negative) 04/25/21 19:00 Urine Ketones Negative (Negative) 04/25/21 19:00 Urine Nitrite Negative (Negative) 04/25/21 19:00 Ur Leukocyte Esterase 2+ (Negative) H 04/25/21 19:00 Urine WBC (Auto) >30 /hpf (0-5) H 04/25/21 19:00 Urine RBC (Auto) 10-30 /hpf (0-4) H 04/25/21 19:00 U Hyaline Cast (Auto) 1-5 /lpf (0-5) 04/25/21 19:00 U Epithel Cells (Auto) >30 /lpf (0-5) H 04/25/21 19:00 Urine Bacteria (Auto) 1+ (Negative) H 04/25/21 19:00
[2021-04-26] MEDS ORDERED: GLYCOPYRROLATE 0.2 MG/ML VIAL ONE (10:53)
[2021-04-26] MEDS ORDERED: LIDOCAINE 2% 2 ML VIAL/AMP(20MG/ML) INFIL ONE (10:53)
[2021-04-26] MEDS ORDERED: NEOSTIGMINE METHYLSULFATE 1 MG/ML 10ML VIAL ONE (10:53)
[2021-04-26] MEDS ORDERED: ONDANSETRON INJ 2 MG/ML 2 ML VIAL ONE (10:53)
[2021-04-26] MEDS ORDERED: DEXAMETHASONE SOD INJ 4 MG/ML VIAL ONE (10:53)
[2021-04-26] MEDS ORDERED: PROPOFOL IV EMULSION 10 MG/ML 20 ML VIAL IV ONE (10:53)
[2021-04-26] MEDS ORDERED: MIDAZOLAM HCL 1 MG/ML 2ML VIAL ONE (10:54)
[2021-04-26] MEDS ORDERED: fentaNYL citrate 100 MCG/2 ML VIAL ONE ×2 (10:54→11:44)
[2021-04-26] MEDS ORDERED: PROMETHAZINE HCL 6.25 MG in SODIUM CHLORIDE 0.9% 50 ML IV PRN (11:01)
[2021-04-26] MEDS ORDERED: ATROPINE SULFATE 0.1 MG/ML 10ML SYR IV PRN (11:01)
[2021-04-26] MEDS ORDERED: fentaNYL citrate 100 MCG/2 ML VIAL IV PRN (11:01)
[2021-04-26] MEDS ORDERED: ONDANSETRON INJ 2 MG/ML 2 ML VIAL IV PRN ×2 (11:01→13:17)
[2021-04-26] MEDS ORDERED: ePHEDrine sulfate 50 MG/ML AMP IV PRN (11:01)
[2021-04-26] MEDS ORDERED: BUPIVACAINE 0.5 % 5 MG/1 ML MPF 30ML VIAL ONE (11:08)
--- NOTE | 2021-04-26 11:08 | History & Physical Bridge Note ---
Date of Service April 26, 2021 History & Physical Bridge Note I have examined the patient, reviewed the History & Physical and in the interval since the performance of the History & Physical I have noted the following changes of clinical significance: no changes noted
[2021-04-26] MEDS ORDERED: ROCURONIUM BROMIDE 10 MG/ML 5 ML VIAL IV ONE (12:05)
[2021-04-26] MEDS ORDERED: ACETAMINOPHEN 1,000 MG/100 ML VIAL IV ONE (12:10)
--- NOTE | 2021-04-26 12:10 | Post Operative Brief Note ---
PG Immediate Post Op with CF Date of Surgery April 26, 2021 Pre & Post Diagnosis Operation Date: 04/26/21 07:00 Pre-Op Diagnosis: Biliary colic Post-Op Diagnosis: Biliary colic, acute and chronic cholecystitis I identified the patient and participated in the time-out.: Yes Procedure Operation Date: 04/26/21 07:00 Actual Procedures p Laparoscopic Cholecystectomy(Not Applicable) - Neal Swanson MD, FACS Surgeon Neal Swanson MD, FACS [employer] Calenderer Yeimi Steinberg Estimated Blood Loss 10 Findings Consistent with Post-Op Diagnosis Acute edema and chronic scar tissue Specimens Specimen Description: As Per Surgeon A. Gall Bladder and Contents
--- NOTE | 2021-04-26 12:32 | Operative Report (OR) ---
DATE OF OPERATION: 04/26/2021. NAME OF OPERATION: Laparoscopic cholecystectomy. PREOPERATIVE DIAGNOSIS: Biliary colic. POSTOPERATIVE DIAGNOSIS: Biliary colic with acute on chronic cholecystitis. STAFF SURGEON: Neal Swanson MD. CUSTOM BIKE BUILDER: Dorothea Steinberg PA-C. ANESTHESIA: General. DESCRIPTION OF PROCEDURE: The patient was brought in the operating room and placed on the operating table in supine position. Her abdomen was prepped and draped in the usual fashion. Pneumatic stocki ngs and orogastric tube were placed. My carpenter assistant installer helped with prepping, draping, removal of the gall bladder and closure of the wounds. 0.5% plain Marcaine was used to anesthetize all incisions. Incis ion was made above the umbilicus, carrying dissection down through significant adipose tissue to the fascia, placing a Veress needle producing pneumoperitoneum. An 11 mm port placed at this level and u nder visualization, three 5 mm ports were placed, one cephalad and two laterally. Gallbladder was grasped and retracted. It was aspirated of bile. It was somewhat hemorrhagic in the wall consistent with acute cholecystitis. Dissection was carried out to the mohit hepatis identifyi ng what appeared to be chronic scar tissue from chronic cholecystitis. Cystic duct and cystic artery were identified, clipped and transected. Gallbladder was then dissected away from the liver bed wit h showing posterior wall edema, placed in an Endobag. It was very long. After appropriate hemostasi s and irrigation, the Endobag was removed through the umbilical site. The patient had very small gal lstones, multiple. At this point, the fascia at the umbilicus closed using interrupted 0 Vicryl sutu re, skin reapproximated using subcuticular 4-0 Monocryl with Dermabond. The patient was transferred to recovery room in stable condition. Job ID: [id number]
--- NOTE | 2021-04-26 12:45 | Anesthesiology Progress Note ---
Date of Service April 26, 2021 Anesthesia Post Procedure Vital Signs Vital Signs: Temp Pulse Pulse Pulse Resp BP BP 04/26/21 12:35 56 L 16 143/80 H 04/26/21 12:25 97.2 F L 67 15 160/72 H 04/26/21 10:24 98.2 F 67 18 117/84 04/26/21 07:50 97.7 F 53 L 18 118/76 04/26/21 07:12 97.5 F L 57 L 16 127/85 04/25/21 21:30 98.1 F 65 16 123/82 04/25/21 21:00 86 18 04/25/21 18:08 97.3 F L 87 16 134/82 BP Pulse Ox 04/26/21 12:35 100 04/26/21 12:25 100 04/26/21 10:24 98 04/26/21 07:50 97 04/26/21 07:12 97 04/25/21 21:30 100 04/25/21 21:00 119/79 100 04/25/21 18:08 99 Pain Intensity Back: Pain Intensity: 2 Abdomen: Pain Intensity: 5 Transfer of Care Handoff Completed per policy Notes Mental Status: alert / awake / arousable and participated in evaluation Patient Amnestic to Procedure: Yes Nausea / Vomiting: adequately controlled Pain: adequately controlled Airway Patency, RR, SpO2: stable & adequate BP & HR: stable & adequate Hydration State: stable & adequate Anesthetic Complications: no major complications apparent and Pt Satisfied with anesthetic care
[2021-04-26] MEDS ORDERED: ACETAMINOPHEN 325 MG TAB PO PRN (13:17)
[2021-04-26] MEDS ORDERED: oxyCODONE HCL IR 5 MG TAB (IMMEDIATE RELEASE) PO PRN (13:17)
[2021-04-26] MEDS ORDERED: PROMETHAZINE HCL 12.5 MG in SODIUM CHLORIDE 0.9% 50 ML IV PRN (13:17)
[2021-04-26] MEDS ORDERED: IBUPROFEN 600 MG TAB PO PRN (13:17)
[2021-04-26] MEDS: LACTATED RINGER'S 1,000 ML IV SCH (13:44)
--- NOTE | 2021-04-27 10:33 | Discharge Summary ---
Date of Service April 26, 2021 Admission HPI Per Admitting Provider This is a 25-year-old female who underwent an ultrasound of her gallbladder on April 10 of this year. This ultrasound showed the patient had cholelithiasis with no gallbladder wall thickening. Patient was referred to Dr. Neal Swanson of [facility] physician with general surgery and plans were tentatively in place for patient had an elective cholecystectomy on May 24 of this year. Patient notified the answering service this evening that she is having worsening abdominal pain. The patient notes for approximately 3 to 5 days she has been having abdominal pain greatest in the epigastric area and to a lesser degree the right upper quadrant that comes and goes which is unrelated to meals. She has had nausea without vomiting. She says that she has been able to eat and this did not seem to exacerbate her pain. She does note that the pain is similar to what she experienced which prompted her initial gallbladder but it is worse in severity and is longer in duration. She notes that the pain also radiates to her back. She does not note any additional provocative factors but she knows it is palliated with medicines were administered in the emergency department. She also adds it is worse in the evening. She has not had any fevers. She does report occasional bouts of diarrhea. She has never had abdominal surgery before. As noted she presented to the emergency department at the recommendation of the on-call physician. In the emergency department patient was hemodynamically stable and afebrile. She did not have any repeat imaging but labs showed that her white blood cell count was normal. Hemoglobin and hematocrit 11.2 and 35.4. Platelet count was noted to be normal. Chemistry profile showed sodium, potassium, BUN, and creatinine were all normal. Her bilirubin, ALT, and alkaline phosphatase were normal. There is a slight elevation of her AST at 57. Her lipase was normal. A test was noted to be negative. Urinalysis did show 2+ leukocyte Estrace and greater than 30 white blood cells per high- power field suggestive of a urinary tract infection. A Covid test was noted be negative. At the time of my interview she was resting comfortably in bed in no distress. Principal Diagnosis biliary colic Discharge Exam awake/alert Gastrointestinal (Abdomen) Inspection/Auscultation: + abdominal surgical incision (c/d/i) Percussion/Palpation: abdomen soft Discharge Data Allergies Allergy/AdvReac Type Severity Reaction Status Date / Time sulfamethoxazole AdvReac Intermediate Rash Verified 04/26/21 10:27 [From Bactrim] trimethoprim [From Bactrim] AdvReac Intermediate Rash Verified 04/26/21 10:27 Consultations 04/25/21 19:41 Consult General Surgery Stat Procedures Performed Operation Date: 04/26/21 07:00 Actual Procedures p Laparoscopic Cholecystectomy(Not Applicable) - Neal Swanson MD, FACS Hospital Course (1) Biliary colic: This is a 25yF who presented to the [facility] ED on 04/25/21 with abdominal pain. She has a history of biliary colic and has been evaluated by surgery as an outpatient for scheduling of removal of her gallbladder planned for May. She had a RUQ US in March showing + cholelithiasis, with mild gallbladder wall thickening, without evidence of acute cholecystitis. Now she presented to the ER due to worsening pain. WBC of 10.5 and LFTs WNL. She had some pain to palpation in the epigastric region. She was admitted and made NPO with IVF and started on pre-op abx. Given symptoms and history it was deemed appropriate to take her to the OR on 04/26/21 for a laparoscopic cholecystectomy. The patient tolerated the procedure well, see op note for full details. Post op her diet was advanced as tolerated and pain controlled on prn pain medications. Incisions c/d/i. She was deemed stable for discharge on POD#0 with plans to follow up with Dr. Swanson in clinic within 2 weeks. (2) S/P laparoscopic cholecystectomy: Total Time Total Time Spent Total Time Spent (In Minutes): 15 Discharge Plan Discharge Items Patient Disposition: Home - Self-Care Reason For Visit: LUCIANA Discharge Diagnosis: Acute and chronic cholecystitis Activity: As commented below Activity Comment: Light activity for 3 weeks Lifting: No more than 25 pounds Bathing Comment: May shower tomorrow/Monday Sexual Activity: When tolerated Exercise Comment: Weight 3 weeks Driving/Machine Use: Resume 3 days after discharge Non-emergency contact: Primary Care Provider and Surgeon Call non-emergency contact if: your pain is not controlled, your temperature is above 101 and your wound has increased drainage Follow-up/Referrals: PCP,NO [Primary Care Provider] - Diet: Regular Addtl Attending Provider Instructions: SPECIAL CARE INSTRUCTIONS: * Cover incisions and change daily for comfort/drainage. May leave uncovered with Dermabond * * Avoid constipation- * May Use Senokot S and Milk of Magnesium twice daily as directed on the package * May use ibuprofen for pain as tolerated. * Expect some swelling and bruising. Call your doctor if: * Temperature above 101 degrees * Pain not relieved by pain medicine ordered * There is increased drainage or redness from any incision * You have any unanswered questions or concerns [phone]. FOLLOW UP VISIT: If not already scheduled, please call the office for a follow-up visit. For 2 weeksno sutures to remove OFFICE PHONE NUMBER: Dr. Swanson Office Pending Studies at Discharge: No Stand-Alone Forms: My [facility], Smoking Cessation Medications and DC Order Prescriptions: New hydrocodone-acetaminophen 5-325 mg tablet 1 tab PO Q4H PRN (Reason: pain) Qty: 30 RF: 0 ondansetron HCl 4 mg tablet 4 mg PO Q6H PRN (Reason: nausea and vomiting) Qty: 10 RF: 0 Continued levothyroxine 25 mcg tablet 25 mcg PO DAILY RF: 0 Discharge Orders: Discharge Order (Routine); Ordered 04/26/21 Ordered By: Neal Swanson Admission Data Admit Date/Time: 04/25/21 20:44 Attending Provider: Carlos Alvarez Admit Provider: Carols Alvarez Primary Care Provider: PCP,NO Other Providers: Carlos Alvarez Other Interventions: Discharge Summary Assessment (RN) Last Done: 04/26/21 15:35 Coding Level of Care Code D/C DAY MANAGEMENT <30 MINS Diagnoses Biliary colic K80.50 S/P laparoscopic cholecystectomy Z90.49
--- NOTE | 2021-04-27 12:14 | Discharge Summary (DS) ---
DATE OF ADMISSION: 04/25/2021. DATE OF DISCHARGE: 04/26/2021. PRINCIPAL DIAGNOSIS: Acute cholecystitis. PROCEDURE: The patient underwent laparoscopic cholecystectomy. HISTORY OF PRESENT ILLNESS: The patient is a 25-year-old female who was actually scheduled for surge ry to have her gallbladder removed, but ended up having to present to the Emergency Room with worseni ng pain on 04/25/2021. She was taken to the operating room the next day where she underwent laparosc opic cholecystectomy showing acute and chronic cholecystitis. She did well from her operation and wa s felt stable for discharge home the same day. She is to be followed in the surgical clinic within 1 -2 weeks. Job ID: [id number]
== END 2021-04-26 16:48 | disposition home or self-care (01) ==
LOC: 3W 18:08 → ED 18:08 → 3W 21:18